=== PATIENT | female | born 1955 | race Caucasian/White ===

== ENCOUNTER 2017-02-07 15:59 | Emergency (ER) | payer OTHER, MEDICAID ==
[~2017-02-07] VITALS: Ht 157.5 cm; Wt 56.7 kg
[2017-02-07 16:00] VITALS: BP 105/73; PULSE 102; RESP 20; TEMP 98.9; O2SAT 99
--- NOTE | 2017-02-07 16:00 | NUR ---
Pt placed to ER bed 7, on monitor and storage bin tender, triaged at bedside. Pt report given to OLAMIDE White and Dr. Dominguez. Pt c/o entire right sided numbness x 1 day. Pt concerned about it being r/t to a stroke or pinched nerve. AAOx4, coherent speech, no focal neurodeficits.
--- NOTE | 2017-02-07 16:09 | NUR ---
Patient to ER C/O right arm mild tingling and right hip numbness with left eye droopiness. patient states that couple days ago she was seen at [facility] where a CT was done and is scheduled to have an MRI next week. patient also C/O left eye droopiness. Walked in with steady gait. AAOx4, unlabored breathing, no signs of acute distress.
--- NOTE | 2017-02-07 16:17 | NUR ---
Note monomarilin in EDM - 02/07/17 at 1619 by SHARA Pt placed to ER bed 7, on quality assurance monitor, report given to OLAMIDE White and Dr. Dominguez. Pt c/o entire right sided numbness x 1 day. Pt concerned about it being r/t to a stroke or pinched nerve. AAOx4, coherent speech, no focal neurodeficits.
--- NOTE | 2017-02-07 16:39 | NUR ---
ER MD Dominguez at bedside evaluating the patient
[2017-02-07] MEDS ORDERED: KETOROLAC TROMETHAMINE 60 MG/2 ML VIAL IM ONE (16:45)
[2017-02-07 17:34] VITALS: BP 116/74; PULSE 88; RESP 17; TEMP 98.4; O2SAT 97
--- NOTE | 2017-02-07 17:34 | NUR ---
Patient given written and verbal discharge instructions and verbalizes understanding. ER MD CASTANO discussed with patient the results and treatment provided. Patient in stable condition. ID arm band removed. Rx of ZOFRAN given. Patient educated on pain management and to follow up with PMD. Pain Scale 0/10. Opportunity for questions provided and answered.
== END 2017-02-07 17:34 | disposition home or self-care (01) ==
LOC: SED 15:59
DX: M62.838 Other muscle spasm (principal); R42 Dizziness and giddiness; H02.402 Unspecified ptosis of left eyelid; R20.2 Paresthesia of skin; R26.89 Other abnormalities of gait and mobility; I10 Essential (primary) hypertension; G43.909 Migraine, unspecified, not intractable, without status migrainosus; F17.200 Nicotine dependence, unspecified, uncomplicated; Z98.890 Other specified postprocedural states; Z88.5 Allergy status to narcotic agent; Z71.6 Tobacco abuse counseling
CPT/HCPCS: 96372; 99283; J1885

== ENCOUNTER 2017-03-06 15:06 | Emergency (ER) | payer OTHER, MEDICAID ==
[~2017-03-06] VITALS: Ht 157.5 cm; Wt 56.7 kg
[2017-03-06 15:06] VITALS: BP_SYST 143
--- NOTE | 2017-03-06 15:06 | NUR ---
Placed on teletypesetter monitor, blood pressure machine and pulse oximeter. To gown for exam. Side rails up. MD called to bedside Monitor shows SVT at 237bpm. Pt calm, denies shortness of breath. 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 Hx of SVT.
--- NOTE | 2017-03-06 15:06 | NUR ---
BROUGHT IMMEDIATELY BACK TO BED #1 VIA WHEELCHAIR, PLACED IN BED AND TRIAGED. REPORT GIVEN TO RINA
--- NOTE | 2017-03-06 15:07 | NUR ---
Dr. King at bedside for evaluation
--- NOTE | 2017-03-06 15:10 | NUR ---
Attempted vagal manuver by blowing into syringe x2. Unsucessful.
--- NOTE | 2017-03-06 15:12 | NUR ---
Dr. King at bedside. 6mg adensoine IVP given. Pt calm, verbalized understanding of medication.
--- NOTE | 2017-03-06 15:13 | NUR ---
Pt converted to sinus tach. Denies chest pain, denies shortness of breath.
--- NOTE | 2017-03-06 15:15 | NUR ---
Oxygen applied at 2L per minute per NC. O2 sats 99% by pulse oximetry.
[2017-03-06] MEDS ORDERED: ADENOSINE 6MG/2ML VIAL ONE (15:17)
[2017-03-06 15:33] LABS: BASOPHILS # (AUTO) 0.1 K/uL (0.0-0.2); BASOPHILS % (AUTO) 0.9 % (0.0-2.0); EOSINOPHILS # (AUTO) 0.5 K/uL (0.0-0.4); EOSINOPHILS % (AUTO) 3.5 % (0.0-4.0); HEMATOCRIT 43.9 % (36-48); LYMPHOCYTES # (AUTO) 4.2 K/uL (1.0-5.5); LYMPHOCYTES % (AUTO) 28.8 % (20.5-51.5); MEAN CORPUSCULAR HEMOGLOBIN 29 pg (27-31); MEAN CORPUSCULAR HGB CONC 34 % (32-36); MEAN CORPUSCULAR VOLUME 85 fL (79.0-98.0); MONOCYTES # (AUTO) 0.6 K/uL (0.0-1.0); MONOCYTES % (AUTO) 3.8 % (1.7-9.3); NEUTROPHILS # (AUTO) 9.3 K/uL (1.8-7.7); PLATELET COUNT (AUTO) 320 K/uL (130-430); RED BLOOD CELL COUNT(AUTO) 5.19 MIL/uL (4.2-6.2); RED CELL DISTRIBUTION WIDTH 12.5 % (9.0-15.0); WHITE BLOOD COUNT (AUTO) 14.7 K/uL (4.8-10.8)
[2017-03-06 15:35] LABS: CALCIUM 8.8 mg/dL (8.4-11.0); CREATININE 1.14 mg/dL (0.55-1.30); POTASSIUM 3.7 mmol/L (3.5-5.1)
[2017-03-06 15:38] LABS: PROTHROMBIN TIME 10.5 SECS (9.5-12.5)
[2017-03-06 15:40] LABS: ALBUMIN 3.8 g/dL (3.4-4.8); TOTAL BILIRUBIN 0.4 mg/dL (0.0-1.0); TOTAL PROTEIN, SERUM 7.7 g/dL (6.4-8.3)
[2017-03-06] MEDS ORDERED: MAGNESIUM SULFATE 50 ML IV ONE (15:45)
[2017-03-06] MEDS ORDERED: ADENOSINE 6MG/2ML VIAL IVP ONE (15:45)
--- NOTE | 2017-03-06 16:00 | NUR ---
Ambulatory to restroom with steady gait.
[2017-03-06] MEDS ORDERED: POTASSIUM CHLORIDE 20 MEQ TAB.PRT.SR PO ONE (16:15)
[2017-03-06 16:32] LABS: BILIRUBIN,URINE NEGATIVE (NEGATIVE); BLOOD, URINE NEGATIVE (NEGATIVE); CLARITY/URINE CLEAR (CLEAR); COLOR,URINE YELLOW (YELLOW); GLUCOSE,URINE NEGATIVE (NEGATIVE); KETONES,URINE NEGATIVE (NEGATIVE); LEUKOCYTE ESTERASE ,URINE NEGATIVE (NEGATIVE); NITRITE, URINE NEGATIVE (NEGATIVE); PH,URINE 5.5 (5.0-8.0); PROTEIN URINE NEGATIVE (NEGATIVE); UROBILINOGEN,URINE 0.2 (0.2-1.0)
--- NOTE | 2017-03-06 16:33 | NUR ---
Patient resting quietly. No acute distress noted. Vital signs within normal range.
[2017-03-06 16:46] VITALS: BP_SYST 128
--- NOTE | 2017-03-06 16:46 | NUR ---
Patient given written and verbal discharge instructions and verbalizes understanding. ER MD discussed with patient the results and treatment provided. Patient in stable condition. ID arm band removed. IV catheter removed intact and dressing applied, no active bleeding. No Rx of given. Patient educated on pain management and to follow up with PMD. Pain Scale 0/10. Opportunity for questions provided and answered.
== END 2017-03-06 16:46 | disposition home or self-care (01) ==
LOC: SED 15:06
DX: I47.1 Supraventricular tachycardia (principal); I10 Essential (primary) hypertension; G43.909 Migraine, unspecified, not intractable, without status migrainosus; Z88.5 Allergy status to narcotic agent; Z88.8 Allergy status to other drugs, medicaments and biological substances
CPT/HCPCS: 36415; 71010; 80053; 81003; 83880; 84484; 85025; 85610; 93005; 96365; 96375; 99285; J0153; J3475

== ENCOUNTER 2017-09-17 22:50 | Inpatient (IN) | payer OTHER, MEDICAID ==
[~2017-09-17] VITALS: Ht 157.5 cm; Wt 58.1 kg
[2017-09-17] MEDS ORDERED: NACL 0.9% 1,000 ML IV ONE (23:00)
[2017-09-17] MEDS ORDERED: ADENOSINE 6MG/2ML VIAL IVP ONE ×2 (23:00→23:30)
[2017-09-17] MEDS ORDERED: ADENOSINE 6MG/2ML VIAL ONE (23:13)
[2017-09-17 23:40] LABS: BASOPHILS # (AUTO) 0.1 K/uL (0.0-0.2); EOSINOPHILS # (AUTO) 0.5 K/uL (0.0-0.4); EOSINOPHILS % (AUTO) 3.2 % (0.0-4.0); LYMPHOCYTES # (AUTO) 3.2 K/uL (1.0-5.5); MEAN CORPUSCULAR HEMOGLOBIN 29 pg (27-31); MEAN CORPUSCULAR HGB CONC 33 % (32-36)
[2017-09-17 23:45] LABS: BASOPHILS % (AUTO) 0.5 % (0.0-2.0); HEMATOCRIT 52.8 % (36-48); HEMOGLOBIN 17.4 g/dL (12.0-16.0); LYMPHOCYTES % (AUTO) 21.4 % (20.5-51.5); MEAN CORPUSCULAR VOLUME 88 fL (79.0-98.0); MONOCYTES # (AUTO) 0.7 K/uL (0.0-1.0); MONOCYTES % (AUTO) 4.4 % (1.7-9.3); NEUTROPHILS # (AUTO) 10.5 K/uL (1.8-7.7); NEUTROPHILS % (AUTO) 70.5 % (40.0-70.0); PLATELET COUNT (AUTO) 324 K/uL (130-430); RED BLOOD CELL COUNT(AUTO) 5.99 MIL/uL (4.2-6.2); RED CELL DISTRIBUTION WIDTH 12.6 % (9.0-15.0)
[2017-09-17 23:52] LABS: CALCIUM 10.1 mg/dL (8.4-11.0); CREATININE 1.12 mg/dL (0.55-1.30); POTASSIUM 3.7 mmol/L (3.5-5.1)
[2017-09-17 23:55] LABS: PROTHROMBIN TIME 10.5 SECS (9.5-12.5)
[2017-09-17 23:57] LABS: ALBUMIN 4.5 g/dL (3.4-4.8); TOTAL BILIRUBIN 0.6 mg/dL (0.0-1.0)
[2017-09-18] VITALS (10 sets, daily range): BP systolic 121–172
[2017-09-18] MEDS ORDERED: PIPERACILLIN/TAZOBACTAM 3.375 GM/VIAL (ZOSYN) IV ONE (00:14)
[2017-09-18] MEDS ORDERED: NACL 0.9% 1,750 ML IV ONE (00:15)
[2017-09-18] MEDS ORDERED: PIPERACILLIN/TAZO 3.375 GM in NS 50 ML IV ONE (00:15)
[2017-09-18] MEDS ORDERED: MAGN250T31 PO (00:28)
[2017-09-18] MEDS ORDERED: VITAMIN D-3 PO (00:30)
[2017-09-18] MEDS ORDERED: ASPI-1063 PO (00:30)
[2017-09-18 01:00] LABS: BILIRUBIN,URINE NEGATIVE (NEGATIVE); BLOOD, URINE TRACE (NEGATIVE); CLARITY/URINE CLEAR (CLEAR); COLOR,URINE YELLOW (YELLOW); GLUCOSE,URINE NEGATIVE (NEGATIVE); KETONES,URINE NEGATIVE (NEGATIVE); LEUKOCYTE ESTERASE ,URINE 1+ (NEGATIVE); NITRITE, URINE NEGATIVE (NEGATIVE); PH,URINE 5.5 (5.0-8.0); PROTEIN URINE NEGATIVE (NEGATIVE); UROBILINOGEN,URINE 0.2 (0.2-1.0)
[2017-09-18 01:07] LABS: BACTERIA,URINE MODERATE /HPF (None Seen); HYALINE CASTS, URINE 0-10 /LPF (None Seen); MUCUS,URINE 1+ /LPF (None Seen); RBC,URINE 0-3 /HPF (0-3)
[2017-09-18] MEDS ORDERED: FLU VACC QS 2017-18(36MOS+)/PF 0.5 ML/SYR SYRINGE I.M. PRN (02:00)
[2017-09-18] MEDS: NACL 0.9% 1,000 ML IV SCH ×3 (02:17→08:49)
[2017-09-18] MEDS: PIPERACILLIN/TAZOBACTAM 3.375 GM/VIAL (ZOSYN) IV ONE ×2 (05:15→05:32)
[2017-09-18] MEDS: PIPERACILLIN/TAZO 3.375/DEX-IS 50 ML IV SCH ×4 (05:34→23:23)
[2017-09-18 08:02] LABS: BASOPHILS % (AUTO) 0.5 % (0.0-2.0); EOSINOPHILS # (AUTO) 0.5 K/uL (0.0-0.4); EOSINOPHILS % (AUTO) 5.8 % (0.0-4.0); HEMATOCRIT 41.2 % (36-48); HEMOGLOBIN 13.8 g/dL (12.0-16.0); LYMPHOCYTES # (AUTO) 2.3 K/uL (1.0-5.5); LYMPHOCYTES % (AUTO) 26.4 % (20.5-51.5); MEAN CORPUSCULAR HEMOGLOBIN 29 pg (27-31); MEAN CORPUSCULAR HGB CONC 34 % (32-36); MEAN CORPUSCULAR VOLUME 87 fL (79.0-98.0); MONOCYTES # (AUTO) 0.6 K/uL (0.0-1.0); MONOCYTES % (AUTO) 6.9 % (1.7-9.3); NEUTROPHILS # (AUTO) 5.3 K/uL (1.8-7.7); NEUTROPHILS % (AUTO) 60.4 % (40.0-70.0); PLATELET COUNT (AUTO) 250 K/uL (130-430); RED BLOOD CELL COUNT(AUTO) 4.73 MIL/uL (4.2-6.2); RED CELL DISTRIBUTION WIDTH 12.4 % (9.0-15.0); WHITE BLOOD COUNT (AUTO) 8.7 K/uL (4.8-10.8)
[2017-09-18 08:23] LABS: CALCIUM 8.5 mg/dL (8.4-11.0); CREATININE 0.69 mg/dL (0.55-1.30); POTASSIUM 3.7 mmol/L (3.5-5.1)
[2017-09-18] MEDS: MAGNESIUM OXIDE 400 MG TABLET PO SCH (08:42)
[2017-09-18] MEDS: ASPIRIN 81 MG TABLET(ECOTRIN) PO SCH (08:42)
[2017-09-18] MEDS ORDERED: CHOLECALCIFEROL (VITAMIN D3) 2,000 UNIT TABLET PO ONE (11:00)
[2017-09-18] MEDS: LEVALBUTEROL HCL 0.63 MG/3 ML VIAL.NEB INH PRN (14:01)
[2017-09-18] MEDS ORDERED: ADENOSINE 6MG/2ML VIAL IVP ONE (17:30)
[2017-09-18] MEDS: SOTALOL HCL 80 MG TABLET PO SCH (20:39)
[2017-09-19] VITALS (7 sets, daily range): BP systolic 118–157
[2017-09-19] MEDS: PIPERACILLIN/TAZO 3.375/DEX-IS 50 ML IV SCH ×4 (05:04→23:49)
[2017-09-19 07:32] LABS: BASOPHILS # (AUTO) 0.1 K/uL (0.0-0.2); BASOPHILS % (AUTO) 0.9 % (0.0-2.0); EOSINOPHILS # (AUTO) 0.6 K/uL (0.0-0.4); EOSINOPHILS % (AUTO) 7.1 % (0.0-4.0); HEMATOCRIT 43.5 % (36-48); HEMOGLOBIN 14.3 g/dL (12.0-16.0); LYMPHOCYTES # (AUTO) 1.8 K/uL (1.0-5.5); LYMPHOCYTES % (AUTO) 22.3 % (20.5-51.5); MEAN CORPUSCULAR HEMOGLOBIN 29 pg (27-31); MEAN CORPUSCULAR HGB CONC 33 % (32-36); MEAN CORPUSCULAR VOLUME 88 fL (79.0-98.0); MONOCYTES # (AUTO) 0.6 K/uL (0.0-1.0); MONOCYTES % (AUTO) 7.5 % (1.7-9.3); NEUTROPHILS # (AUTO) 4.9 K/uL (1.8-7.7); NEUTROPHILS % (AUTO) 62.2 % (40.0-70.0); PLATELET COUNT (AUTO) 268 K/uL (130-430); RED BLOOD CELL COUNT(AUTO) 4.97 MIL/uL (4.2-6.2); RED CELL DISTRIBUTION WIDTH 12.5 % (9.0-15.0)
[2017-09-19 08:16] LABS: ALBUMIN 3.3 g/dL (3.4-4.8); CALCIUM 9.2 mg/dL (8.4-11.0); CREATININE 0.81 mg/dL (0.55-1.30); POTASSIUM 3.9 mmol/L (3.5-5.1); THYROID STIMULATING HORMONE 1.12 uIu/mL (0.34-4.82); TOTAL BILIRUBIN 0.9 mg/dL (0.0-1.0)
[2017-09-19] MEDS: CHOLECALCIFEROL (VITAMIN D3) 2,000 UNIT TABLET PO SCH (08:59)
[2017-09-19] MEDS: MAGNESIUM OXIDE 400 MG TABLET PO SCH (08:59)
[2017-09-19] MEDS: ASPIRIN 81 MG TABLET(ECOTRIN) PO SCH (08:59)
[2017-09-19] MEDS: SOTALOL HCL 80 MG TABLET PO SCH ×2 (08:59→20:29)
[2017-09-19] MEDS: ACETAMINOPHEN 325 MG TABLET PO PRN ×2 (09:00→23:49)
[2017-09-19] MEDS: NACL 0.9% 1,000 ML IV SCH ×2 (09:01→15:18)
[2017-09-19] MEDS: LEVALBUTEROL HCL 0.63 MG/3 ML VIAL.NEB INH PRN ×2 (15:32→19:05)
[2017-09-20 04:23] VITALS: BP_SYST 121
[2017-09-20] MEDS: NACL 0.9% 1,000 ML IV SCH ×2 (04:34→15:40)
[2017-09-20] MEDS: PIPERACILLIN/TAZO 3.375/DEX-IS 50 ML IV SCH ×4 (05:39→23:31)
[2017-09-20 08:04] VITALS: BP_SYST 145
[2017-09-20] MEDS: CHOLECALCIFEROL (VITAMIN D3) 2,000 UNIT TABLET PO SCH (09:12)
[2017-09-20] MEDS: ASPIRIN 81 MG TABLET(ECOTRIN) PO SCH (09:13)
[2017-09-20] MEDS: SOTALOL HCL 80 MG TABLET PO SCH ×2 (09:13→21:18)
[2017-09-20] MEDS: MAGNESIUM OXIDE 400 MG TABLET PO SCH (09:13)
[2017-09-20 12:33] VITALS: BP_SYST 145
[2017-09-20] MEDS: LACTOBACILLUS RHAMNOSUS GG 1 CAP CAPSULE PO SCH ×2 (13:03→21:00)
[2017-09-20] MEDS: TEARS ARTIFICIAL 15 ML DROPS OP PRN ×2 (13:03→18:00)
[2017-09-20] MEDS: MUPIROCIN 2% TOPICAL OINTMENT 22 GM TP SCH ×2 (13:03→21:18)
[2017-09-20] MEDS ORDERED: VANCOMYCIN HCL 1 GM/NS PREMIX 250 ML IV ONE (14:30)
[2017-09-20] MEDS: LEVALBUTEROL HCL 0.63 MG/3 ML VIAL.NEB INH PRN ×2 (15:43→19:17)
[2017-09-20 16:27] VITALS: BP_SYST 165
[2017-09-20 21:15] VITALS: BP_SYST 142
[2017-09-21] MEDS: TEARS ARTIFICIAL 15 ML DROPS OP PRN (00:12)
[2017-09-21 00:31] VITALS: BP_SYST 150
[2017-09-21 04:49] VITALS: BP_SYST 140
[2017-09-21] MEDS: ACETAMINOPHEN 325 MG TABLET PO PRN (05:02)
[2017-09-21] MEDS: NACL 0.9% 1,000 ML IV SCH (05:03)
[2017-09-21] MEDS: PIPERACILLIN/TAZO 3.375/DEX-IS 50 ML IV SCH ×2 (05:05→12:38)
[2017-09-21] MEDS: MAGNESIUM OXIDE 400 MG TABLET PO SCH (10:01)
[2017-09-21] MEDS: CHOLECALCIFEROL (VITAMIN D3) 2,000 UNIT TABLET PO SCH (10:01)
[2017-09-21] MEDS: SOTALOL HCL 80 MG TABLET PO SCH (10:01)
[2017-09-21] MEDS: ASPIRIN 81 MG TABLET(ECOTRIN) PO SCH (10:01)
[2017-09-21] MEDS: LACTOBACILLUS RHAMNOSUS GG 1 CAP CAPSULE PO SCH (10:01)
[2017-09-21] MEDS: MUPIROCIN 2% TOPICAL OINTMENT 22 GM TP SCH (10:01)
[2017-09-21 11:27] VITALS: BP_SYST 156
[2017-09-21] MEDS: LEVALBUTEROL HCL 0.63 MG/3 ML VIAL.NEB INH PRN (11:32)
[2017-09-21 12:29] VITALS: BP_SYST 156
[2017-09-21] MEDS ORDERED: SOTA80TA PO (12:42)
[2017-09-21] MEDS ORDERED: XOP.63 INH (12:43)
[2017-09-21] MEDS ORDERED: SACC250C3 PO (12:43)
[2017-09-21] MEDS ORDERED: MUPI1OIN4 NS (12:44)
[2017-09-21] MEDS ORDERED: DOXY100T2 PO (12:44)
== END 2017-09-21 13:35 | disposition home or self-care (01) | DRG 872 ==
LOC: SED 22:50 → STU 09-18 00:33
PROVIDERS: ADMIT Internal Medicine; ATTEND Internal Medicine
DX: A41.9 Sepsis, unspecified organism (principal); E87.2 Acidosis; N39.0 Urinary tract infection, site not specified; I47.1 Supraventricular tachycardia; I10 Essential (primary) hypertension; J20.9 Acute bronchitis, unspecified; G62.9 Polyneuropathy, unspecified; F03.90 Unspecified dementia, unspecified severity, without behavioral disturbance, psychotic disturbance, mood disturbance, and anxiety; F17.210 Nicotine dependence, cigarettes, uncomplicated; Z88.8 Allergy status to other drugs, medicaments and biological substances; Z22.322 Carrier or suspected carrier of Methicillin resistant Staphylococcus aureus; Z78.9 Other specified health status
CPT/HCPCS: 36415; 71010; 71020-TC; 80048; 80053; 81000-TC; 83605; 84439; 84443-TC; 84484; 85025; 85610-TC; 85730-TC; 87040-TC; 87070-TC; 87081; 87086; 87205-TC; 93005; 93306; 94640; 96361; 96365; 96375; 97110-GP; 97116-GP; 97530-GP; 99285; J0153; J2543; J3370; J7030; J7060; Q2037

== ENCOUNTER 2018-01-06 15:16 | Emergency (ER) | payer OTHER, MEDICAID ==
[~2018-01-06] VITALS: Ht 157.5 cm; Wt 59.0 kg
[2018-01-06 15:16] VITALS: BP_SYST 119
[~2018-01-06 15:16] MED LIST: ASPI-1063 PO; DOXY100T2 PO; MAGN250T31 PO; MUPI1OIN4 NS; SACC250C3 PO; SOTA80TA PO; VITAMIN D-3 PO; XOP.63 INH
--- NOTE | 2018-01-06 15:16 | NUR ---
BROUGHT IN BY [place] [employer]IV[employer] FIRE AND PLACED IN BED #1, TRIAGED AND REPORT GIVEN TO AUDREY
--- NOTE | 2018-01-06 15:35 | NUR ---
ER at bedside examining patient.
--- NOTE | 2018-01-06 15:38 | NUR ---
Pt becoming verbally combative with MD Santos. Pt is persistant on leaving, and yelled "I want to go AMA, I don't care take my IV out or I'm going to rip it out. Do you want blood everywhere? ". Pt was yelling and laughing when stating this. It was explained to pt the reason she's here and attmepted to resolve/redirrect pt's anger but to no avail.
--- NOTE | 2018-01-06 15:47 | NUR ---
Refused to be evaluated by MD and refused to be evaluated by nurse. Explained to her regarding her AMA. Still wants to go AMA and wants to see Dr. Briones. Expalined to her that Dr. Briones is not an ER MD and she knows and wants to see him in his office. Called Dr. Briones's office and spoke with bilingual secretary. Pt will go to Dr. Briones's office per discussion with pt.
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
== END 2018-01-06 15:54 | disposition left against medical advice (07) ==
LOC: SED 15:16
DX: F45.9 Somatoform disorder, unspecified (principal); F48.9 Nonpsychotic mental disorder, unspecified; R00.2 Palpitations; I10 Essential (primary) hypertension; G43.909 Migraine, unspecified, not intractable, without status migrainosus; Z88.5 Allergy status to narcotic agent; Z88.6 Allergy status to analgesic agent; Z79.899 Other long term (current) drug therapy
CPT/HCPCS: 99283

== ENCOUNTER 2018-06-24 19:47 | Emergency (ER) | payer OTHER, MEDICAID ==
[~2018-06-24] VITALS: Ht 157.5 cm; Wt 68.0 kg
[~2018-06-24 19:47] MED LIST changes: -ASPI-1063 PO; +ASPI-1153 PO; +MAGN250T10 PO; -MAGN250T31 PO
[2018-06-24 19:51] VITALS: BP_SYST 155
--- NOTE | 2018-06-24 19:55 | NUR ---
Patient to ER bed 4 to gown for evaluation. Side rails up. Report given to OLAMIDE WORTHINGTON.
[2018-06-24] MEDS ORDERED: NACL 0.9% 1,000 ML IV ONE (19:57)
[2018-06-24] MEDS ORDERED: ADENOSINE 6MG/2ML VIAL IVP ONE (20:00)
[2018-06-24] MEDS ORDERED: ASPIRIN 81 MG TAB.CHEW PO ONE (20:00)
--- NOTE | 2018-06-24 20:00 | NUR ---
Patient ambulatory to ED a/o x 4 with c/o palpitations x 1 hour. Presents to ED w/ HR of 204. Hx of SVT. Patient called paramedics while at home, signed out AMA with paramedics and took private auto to ED. -CP, -SOB, -N/V. Per patient, "adenosine usually does the trick, this happens once a month". Patient states she has been attempting to bear down with no relief.
--- NOTE | 2018-06-24 20:00 | NUR ---
ED MD Meehan at bedside for medical evaluation.
--- NOTE | 2018-06-24 20:11 | NUR ---
6mg adenosine given IVP. Patient converted to heart rate of 96. Maintaining rate at this time.
[2018-06-24 20:31] LABS: BASOPHILS # (AUTO) 0.1 K/uL (0.0-0.2); BASOPHILS % (AUTO) 1.1 % (0.0-2.0); EOSINOPHILS # (AUTO) 0.3 K/uL (0.0-0.4); HEMOGLOBIN 15.9 g/dL (12.0-16.0); LYMPHOCYTES # (AUTO) 3.3 K/uL (1.0-5.5); LYMPHOCYTES % (AUTO) 34.7 % (20.5-51.5); MEAN CORPUSCULAR HEMOGLOBIN 30 pg (27-31); MEAN CORPUSCULAR HGB CONC 35 % (32-36); MEAN CORPUSCULAR VOLUME 87 fL (79.0-98.0); MONOCYTES # (AUTO) 0.4 K/uL (0.0-1.0); MONOCYTES % (AUTO) 4.3 % (1.7-9.3); NEUTROPHILS # (AUTO) 5.4 K/uL (1.8-7.7); NEUTROPHILS % (AUTO) 56.9 % (40.0-70.0); PLATELET COUNT (AUTO) 280 K/uL (130-430); RED BLOOD CELL COUNT(AUTO) 5.29 MIL/uL (4.2-6.2); RED CELL DISTRIBUTION WIDTH 12.1 % (9.0-15.0); WHITE BLOOD COUNT (AUTO) 9.5 K/uL (4.8-10.8)
[2018-06-24 20:41] LABS: CALCIUM 8.9 mg/dL (8.4-11.0); CREATININE 0.95 mg/dL (0.55-1.30); POTASSIUM 3.5 mmol/L (3.5-5.1)
--- NOTE | 2018-06-24 20:49 | NUR ---
Patient is refusing further treatment at this time. Patient has begun taking equipment off of her. Patient states, "I need to go outside and smoke a cigarette. Im ready to go home". ED MD Meehan made aware.
[2018-06-24 20:55] VITALS: BP_SYST 137
--- NOTE | 2018-06-24 20:55 | NUR ---
Patient does not wish to proceed with medical care recommended by Dr. Meehan. Patient given information related to possible complications, up to and including , which could occur as a result of leaving hospital at this time. Patient verbalizes understanding of risks involved leaving against medical advice. Patient has signed AMA form.
[2018-06-24 20:59] LABS: ALBUMIN 4.1 g/dL (3.4-4.8); TOTAL BILIRUBIN 0.4 mg/dL (0.0-1.0)
== END 2018-06-24 20:55 | disposition left against medical advice (07) ==
LOC: SED 19:47
DX: I47.1 Supraventricular tachycardia (principal); F45.9 Somatoform disorder, unspecified; I10 Essential (primary) hypertension; G43.909 Migraine, unspecified, not intractable, without status migrainosus; Z79.899 Other long term (current) drug therapy; Z88.8 Allergy status to other drugs, medicaments and biological substances
CPT/HCPCS: 36415; 80053; 82150; 82550; 83690; 84484; 85025; 85610; 85730; 93005; 96374; 99285; J0153; J7030

== ENCOUNTER 2018-10-28 08:59 | Emergency (ER) | payer OTHER, MEDICAID ==
[~2018-10-28] VITALS: Ht 157.5 cm; Wt 62.6 kg
[2018-10-28 09:06] VITALS: BP_SYST 160
[2018-10-28 09:25] VITALS: BP_SYST 160
== END 2018-10-28 09:25 | disposition home or self-care (01) ==
LOC: SED 08:59
DX: I47.1 Supraventricular tachycardia (principal); I10 Essential (primary) hypertension; G43.909 Migraine, unspecified, not intractable, without status migrainosus; Z88.5 Allergy status to narcotic agent; Z88.6 Allergy status to analgesic agent; Z88.8 Allergy status to other drugs, medicaments and biological substances; Z79.899 Other long term (current) drug therapy
CPT/HCPCS: 99281

== ENCOUNTER 2019-07-27 23:02 | Emergency (ER) | payer OTHER, MEDICAID ==
[~2019-07-27] VITALS: Ht 157.5 cm; Wt 55.8 kg
--- NOTE | 2019-07-27 23:02 | NUR ---
Placed in room 4 . Placed on radiographer cardiac catheterization, blood pressure machine and pulse oximeter. To gown for exam. Side rails up.
--- NOTE | 2019-07-27 23:04 | NUR ---
ER at bedside examining patient.
--- NOTE | 2019-07-27 23:05 | NUR ---
Patient AOx4, ambulatory, presents to ER with complaint of irregular heart beat since today in afternoon. Patient states this visit is a result of second occurance of irrregular heart beat. Patient states she called 911 and was given Adenosine which relieved symptoms. Patient states she was dehydrated, weak, and lightheaded, she drank water and went to sleep. She says symptoms returned 45 minutes prior to arrival to ER. Patient states she is under much stress because she is caring for another person at this time. No other symptoms or complaints.
[2019-07-27 23:19] VITALS: BP_SYST 163
[2019-07-27] MEDS ORDERED: ADENOSINE 6MG/2ML VIAL IVP ONE (23:30)
[2019-07-27 23:57] LABS: BASOPHILS # (AUTO) 0.2 K/uL (0.0-0.2); BASOPHILS % (AUTO) 1.9 % (0.0-2.0); EOSINOPHILS # (AUTO) 0.3 K/uL (0.0-0.4); EOSINOPHILS % (AUTO) 2.8 % (0.0-4.0); HEMATOCRIT 46.7 % (36-48); HEMOGLOBIN 15.9 g/dL (12.0-16.0); LYMPHOCYTES # (AUTO) 3.8 K/uL (1.0-5.5); LYMPHOCYTES % (AUTO) 40.3 % (20.5-51.5); MEAN CORPUSCULAR HEMOGLOBIN 30 pg (27-31); MEAN CORPUSCULAR HGB CONC 34 % (32-36); MEAN CORPUSCULAR VOLUME 88 fL (79.0-98.0); MONOCYTES # (AUTO) 0.6 K/uL (0.0-1.0); MONOCYTES % (AUTO) 6.1 % (1.7-9.3); NEUTROPHILS # (AUTO) 4.6 K/uL (1.8-7.7); NEUTROPHILS % (AUTO) 48.9 % (40.0-70.0); PLATELET COUNT (AUTO) 268 K/uL (130-430); RED BLOOD CELL COUNT(AUTO) 5.34 MIL/uL (4.2-6.2); WHITE BLOOD COUNT (AUTO) 9.4 K/uL (4.8-10.8)
[2019-07-28 00:55] LABS: ANION GAP 13 (5-15); CALCIUM 8.9 mg/dL (8.4-11.0); CHLORIDE 107 mmol/L (98-107); CREATININE 0.82 mg/dL (0.55-1.30); GLUCOSE 103 mg/dL (70-99); POTASSIUM 3.5 mmol/L (3.5-5.1); SODIUM SERUM 141 mmol/L (136-145); UREA NITROGEN, BLOOD 17 mg/dL (8-21)
[2019-07-28 01:10] LABS: ALANINE AMINOTRANSFERASE 19 U/L (12-78); ALBUMIN 3.6 g/dL (3.4-4.8); ALCOHOL, BLOOD < 3 mg/dL (<10); ASPARTATE AMINOTRANSFERASE 24 U/L (10-37); GFR AFRICAN AMERICAN 91 mL/min (>90); THYROID STIMULATING HORMONE 2.94 uIu/mL (0.36-3.74); TOTAL BILIRUBIN 0.4 mg/dL (0.0-1.0)
[2019-07-28 01:13] LABS: BILIRUBIN,URINE NEGATIVE (NEGATIVE); BLOOD, URINE NEGATIVE (NEGATIVE); CLARITY/URINE CLEAR (CLEAR); COLOR,URINE YELLOW (YELLOW); GLUCOSE,URINE NEGATIVE (NEGATIVE); KETONES,URINE NEGATIVE (NEGATIVE); LEUKOCYTE ESTERASE ,URINE NEGATIVE (NEGATIVE); NITRITE, URINE NEGATIVE (NEGATIVE); PH,URINE 6.5 (5.0-8.0); PROTEIN URINE NEGATIVE (NEGATIVE); UROBILINOGEN,URINE 0.2 (0.2-1.0)
[2019-07-28 01:26] LABS: BARBITURATE, URINE NEGATIVE (NEG <=200); BENZODIAZEPINE, URINE NEGATIVE (NEG <=150); CANNABINOID, URINE POSITIVE (NEG <=50); COCAINE, URINE NEGATIVE (NEG <=150); METHAMPHETAMINES SCREEN,URINE NEGATIVE (NEG <=500); OPIATE, URINE NEGATIVE (NEG <=100); PHENCYCLIDINE SCREEN,URINE NEGATIVE (NEG <=25); UR TRICYCLIC ANTIDEPRESSANTS NEGATIVE (NEG <=300); URINE AMPHETAMINE NEGATIVE (NEG <=500); URINE METHADONE NEGATIVE (NEG <=200); URINE OXYCODONE SCREEN NEGATIVE (NEG <=100); URINE PROPOXYPHENE SCREEN NEGATIVE (NEG <=300)
[2019-07-28 01:57] VITALS: BP_SYST 145
== END 2019-07-28 01:57 | disposition home or self-care (01) ==
LOC: SED 23:02
DX: R00.0 Tachycardia, unspecified (principal); I10 Essential (primary) hypertension; G43.909 Migraine, unspecified, not intractable, without status migrainosus; F17.210 Nicotine dependence, cigarettes, uncomplicated; Z88.5 Allergy status to narcotic agent; Z88.8 Allergy status to other drugs, medicaments and biological substances; Z79.82 Long term (current) use of aspirin; Z79.899 Other long term (current) drug therapy
CPT/HCPCS: 36415; 80053; 80307; 81003; 84443; 84484; 85025; 93005; 96374; 99284; G0482; J0153

== ENCOUNTER 2019-09-06 20:50 | Emergency (ER) | payer OTHER, MEDICAID ==
[~2019-09-06] VITALS: Ht 157.5 cm; Wt 61.2 kg
[2019-09-06 20:50] VITALS: BP_SYST 158
[2019-09-06] MEDS ORDERED: ADENOSINE 6MG/2ML VIAL IVP ONE (21:00)
[2019-09-06] MEDS ORDERED: ADENOSINE 6MG/2ML VIAL ONE (21:15)
[2019-09-06 21:25] LABS: BASOPHILS % (AUTO) 0.5 % (0.0-2.0); EOSINOPHILS % (AUTO) 2.8 % (0.0-4.0); HEMATOCRIT 47.4 % (36-48); HEMOGLOBIN 16.6 g/dL (12.0-16.0); LYMPHOCYTES % (AUTO) 42.5 % (20.5-51.5); MEAN CORPUSCULAR HEMOGLOBIN 31 pg (27-31); MEAN CORPUSCULAR HGB CONC 35 % (32-36); MEAN CORPUSCULAR VOLUME 88 fL (79.0-98.0); NEUTROPHILS % (AUTO) 48.2 % (40.0-70.0); PLATELET COUNT (AUTO) 292 K/uL (130-430); RED BLOOD CELL COUNT(AUTO) 5.37 MIL/uL (4.2-6.2); WHITE BLOOD COUNT (AUTO) 10.1 K/uL (4.8-10.8)
[2019-09-06 21:26] LABS: EOSINOPHILS # (AUTO) 0.3 K/uL (0.0-0.4); LYMPHOCYTES # (AUTO) 4.3 K/uL (1.0-5.5); MONOCYTES # (AUTO) 0.6 K/uL (0.0-1.0); NEUTROPHILS # (AUTO) 4.9 K/uL (1.8-7.7)
[2019-09-06 21:37] LABS: CALCIUM 9.3 mg/dL (8.4-11.0); POTASSIUM 3.9 mmol/L (3.5-5.1)
[2019-09-06 21:38] LABS: CREATININE 0.97 mg/dL (0.55-1.30)
[2019-09-06 21:40] LABS: INR 0.9 (0.8-1.2); PROTHROMBIN TIME 9.4 SECS (9.5-12.5)
[2019-09-06 21:42] LABS: ALBUMIN 3.6 g/dL (3.4-4.8); TOTAL BILIRUBIN 0.3 mg/dL (0.0-1.0)
[2019-09-06] MEDS ORDERED: NACL 0.9% 1,000 ML IV ONE (22:00)
[2019-09-06 22:22] LABS: CLARITY/URINE CLEAR (CLEAR); COLOR,URINE YELLOW (YELLOW)
[2019-09-06 22:23] LABS: BILIRUBIN,URINE NEGATIVE (NEGATIVE); BLOOD, URINE NEGATIVE (NEGATIVE); GLUCOSE,URINE NEGATIVE (NEGATIVE); KETONES,URINE NEGATIVE (NEGATIVE); LEUKOCYTE ESTERASE ,URINE TRACE (NEGATIVE); NITRITE, URINE NEGATIVE (NEGATIVE); PH,URINE 5.5 (5.0-8.0); PROTEIN URINE NEGATIVE (NEGATIVE); UROBILINOGEN,URINE 0.2 (0.2-1.0)
[2019-09-06 22:24] LABS: BACTERIA,URINE FEW /HPF (None Seen); RBC,URINE 0-3 /HPF (0-3)
[2019-09-06] MEDS ORDERED: CEPHALEXIN 500 MG CAPSULE PO ONE (23:15)
[2019-09-06 23:22] VITALS: BP_SYST 146
== END 2019-09-06 23:32 | disposition home or self-care (01) ==
LOC: SED 20:50
DX: I47.1 Supraventricular tachycardia (principal); N39.0 Urinary tract infection, site not specified; Z88.5 Allergy status to narcotic agent; I10 Essential (primary) hypertension; G43.909 Migraine, unspecified, not intractable, without status migrainosus; Z79.82 Long term (current) use of aspirin; Z79.899 Other long term (current) drug therapy; Z88.6 Allergy status to analgesic agent; Z88.8 Allergy status to other drugs, medicaments and biological substances
CPT/HCPCS: 36415; 71045; 80053; 81000; 82550; 83880; 84484; 85025; 85379; 85610; 93005; 96374; 99284; J0153; J7030

== ENCOUNTER 2023-11-17 18:04 | Emergency (ER) | payer OTHER, MEDICAID ==
[~2023-11-17] VITALS: Ht 160 cm; Wt 54.4 kg
[~2023-11-17 18:04] MED LIST changes: -ASPI-1153 PO; +ASPI-1393 PO
[2023-11-17 18:14] VITALS: BP_SYST 109; PULSE 103; RESP 17; TEMP 97.6; O2SAT 96
[2023-11-17 20:10] LABS: BASOPHILS # (AUTO) 0.1 K/uL (0.0-0.2); EOSINOPHILS % (AUTO) 0.8 % (0.0-4.0); HEMATOCRIT 42.6 % (36-48); HEMOGLOBIN 14.9 g/dL (12.0-16.0); LYMPHOCYTES # (AUTO) 0.8 K/uL (1.0-5.5); LYMPHOCYTES % (AUTO) 12.5 % (20.5-51.5); MEAN CORPUSCULAR HEMOGLOBIN 30 pg (27-31); MEAN CORPUSCULAR HGB CONC 35 % (32-36); MEAN CORPUSCULAR VOLUME 86 fL (79.0-98.0); MONOCYTES # (AUTO) 0.5 K/uL (0.0-1.0); MONOCYTES % (AUTO) 7.3 % (1.7-9.3); NEUTROPHILS # (AUTO) 4.9 K/uL (1.8-7.7); NEUTROPHILS % (AUTO) 78.4 % (40.0-70.0); PLATELET COUNT (AUTO) 249 K/uL (130-430); RED BLOOD CELL COUNT(AUTO) 4.97 MIL/uL (4.2-6.2); WHITE BLOOD COUNT (AUTO) 6.2 K/uL (4.8-10.8)
[2023-11-17 20:47] LABS: ANION GAP 9 (5-15); CALCIUM 8.3 mg/dL (8.4-11.0); CARBON DIOXIDE 26 mmol/L (23-29); CHLORIDE 103 mmol/L (98-107); CREATININE 0.87 mg/dL (0.55-1.30); GFR AFRICAN AMERICAN 84 mL/min (>90); GFR NON AFRICAN-AMERICAN 69 mL/min (>90); GLUCOSE 98 mg/dL (74-106); SODIUM SERUM 138 mmol/L (136-145); UREA NITROGEN, BLOOD 8 mg/dL (8-21)
[2023-11-17 23:17] VITALS: BP_SYST 170; PULSE 96; RESP 15; TEMP 99; O2SAT 96
== END 2023-11-17 21:20 | disposition left against medical advice (07) ==
LOC: SED 18:04
DX: J06.9 Acute upper respiratory infection, unspecified (principal); R07.9 Chest pain, unspecified; R00.0 Tachycardia, unspecified; R00.2 Palpitations; I10 Essential (primary) hypertension; F17.210 Nicotine dependence, cigarettes, uncomplicated; Z88.5 Allergy status to narcotic agent; Z88.8 Allergy status to other drugs, medicaments and biological substances; Z79.899 Other long term (current) drug therapy
CPT/HCPCS: 36415; 71045; 80048; 84484; 85025; 93005; 99285